=== PATIENT | female | born 1970 | race Caucasian/White ===

== ENCOUNTER 2017-08-09 07:40 | Emergency (ER) | payer MEDICARE, MEDICAID ==
[~2017-08-09] VITALS: Ht 167.6 cm; Wt 81.6 kg
[2017-08-09] MEDS ORDERED: KETOROLAC 30 MG/1 ML ONE (08:03)
[2017-08-09] MEDS ORDERED: ZIPR80CA2 PO (08:05)
[2017-08-09] MEDS ORDERED: KETOROLAC 30 MG/1 ML IM ONE (08:30)
[2017-08-09 08:47] LABS: RAPID INFLUENZA A Negative (Negative); RAPID INFLUENZA B Negative (Negative)
[2017-08-09 08:49] VITALS: BP 154/89
== END 2017-08-09 09:21 | disposition home or self-care (01) ==
LOC: ED 09:00
DX: B34.9 Viral infection, unspecified (principal); M79.1 Myalgia; J00 Acute nasopharyngitis [common cold]
CPT/HCPCS: 71046; 87400; 96372; 99285; J1885

== ENCOUNTER 2018-02-01 21:12 | Emergency (ER) | payer MEDICARE, MEDICAID ==
[~2018-02-01] VITALS: Ht 170.2 cm; Wt 82.0 kg
[~2018-02-01 21:12] MED LIST: ZIPR80CA2 PO
[2018-02-01 21:16] VITALS: BP 135/87
[2018-02-01] MEDS ORDERED: PROPARACAINE OPHTH 0.5%, 15ML ONE (21:34)
== END 2018-02-01 22:31 | disposition home or self-care (01) ==
LOC: ED 22:20
DX: H10.33 Unspecified acute conjunctivitis, bilateral (principal); Z76.0 Encounter for issue of repeat prescription; F17.210 Nicotine dependence, cigarettes, uncomplicated
CPT/HCPCS: 99283